=== PATIENT | male | born 1995 | race Caucasian/White ===

== ENCOUNTER 2021-01-25 12:05 | Emergency (ER) | payer OTHER ==
[2021-01-25] MEDS ORDERED: BACLOFEN 10MG T10 MG PO (14:14)
[2021-01-25] MEDS ORDERED: NAPROXEN500 MG PO (14:14)
== END 2021-01-25 14:35 | disposition home or self-care (01) ==
LOC: FER 12:05
DX: S50.12XA Contusion of left forearm, initial encounter (principal); Z88.1 Allergy status to other antibiotic agents; V43.62XA Car passenger injured in collision with other type car in traffic accident, initial encounter; Y92.410 Unspecified street and highway as the place of occurrence of the external cause
CPT/HCPCS: 70450; 72125